=== PATIENT | female | born 1980 | race Hispanic/Latino ===

== ENCOUNTER 2020-04-02 08:56 | Outpatient (CLI) | payer OTHER ==
--- NOTE | 2020-04-02 09:41 | ULT ---
LEFT BREAST ULTRASOUND: Date: 04/02/2020 HISTORY: Abnormal mammogram of 03/26/2020. FINDINGS: Sonographic evaluation of the left upper outer breast demonstrates a 9.0 mm cyst at the 2 o'clock pos ition of the left breast, 2.0 cm from the nipple, corresponding to the mammographic finding. IMPRESSION: BI-RADS Category 2 - Benign findings. Return to annual mammographic screening. POS: OFF
== END 2020-04-02 08:57 | disposition home or self-care (01) ==
LOC: BICULT 08:56
PROVIDERS: ATTEND Physician Assistant
DX: R92.8 Other abnormal and inconclusive findings on diagnostic imaging of breast (principal)